=== PATIENT | female | born 1970 | race Caucasian/White ===

== ENCOUNTER 2018-10-08 09:19 | Emergency (ER) | payer SELFPAY ==
[2018-10-08] MEDS: TETRACAINE 0.5% 4 ML OPH BOTH EYES (11:28)
[2018-10-08] MEDS: KETOROLAC 60 MG INJ IM (11:28)
[2018-10-08 11:39] LABS: ADD MAN DIFF? NO
[2018-10-08 11:41] LABS: BASOPHILS % 0.6 % (0.0-2.0); EOSINOPHILS # 0.1 10^3/ul (0.0-0.5); EOSINOPHILS % 1.5 % (0.0-7.0); HEMATOCRIT 41.6 % (37.0-47.0); HEMOGLOBIN 13.8 g/dl (12.0-16.0); LYMPHOCYTES # 1.9 10^3/ul (0.8-2.9); LYMPHOCYTES % 27.8 % (15.0-51.0); MEAN CORPUSCULAR HEMOGLOBIN 29.8 pg (29.0-33.0); MEAN CORPUSCULAR HGB CONC 33.2 g/dl (32.0-37.0); MEAN CORPUSCULAR VOLUME 89.8 fl (82.0-101.0); MEAN PLATELET VOLUME 11.2 fl (7.4-10.4); MONOCYTE # 0.4 10^3/ul (0.3-0.9); MONOCYTES % 6.4 % (0.0-11.0); NEUTROPHIL # 4.2 10^3/ul (1.6-7.5); NEUTROPHILS % 63.4 % (39.0-77.0); PLATELET COUNT 256 10^3/UL (140-415); RED BLOOD COUNT 4.63 10^6/ul (4.20-5.40); RED CELL DISTRIBUTION WIDTH 12.6 % (11.5-14.5)
[2018-10-08 11:41] LABS: WHITE BLOOD COUNT 6.7 10^3/ul (4.8-10.8)
== END 2018-10-08 13:53 | disposition home or self-care (01) ==
LOC: FTE 09:19
DX: M54.2 Cervicalgia (principal)
CPT/HCPCS: 72040; 81025; 85025; 96372; 99284-25